=== PATIENT | male | born 1975 | race Caucasian/White ===

== ENCOUNTER 2018-03-02 05:53 | Emergency (ER) | payer MEDICARE, MEDICAID ==
[~2018-03-02] VITALS: Ht 180.3 cm; Wt 140.0 kg
[2018-03-02 06:01] VITALS: BP 128/75
[2018-03-02] MEDS ORDERED: ACETAMINOPHEN 500 MG TABLET ONE (06:14)
[2018-03-02] MEDS ORDERED: ONDANSETRON ODT 8 MG ONE (06:14)
[2018-03-02] MEDS ORDERED: BENZONATATE 100 MG CAPSULE ONE ×2 (06:17)
[2018-03-02] MEDS ORDERED: ATEN25TA PO (06:26)
[2018-03-02] MEDS ORDERED: ONDANSETRON ODT 8 MG PO ONE (06:30)
[2018-03-02] MEDS ORDERED: BENZONATATE 100 MG CAPSULE PO ONE (06:30)
[2018-03-02] MEDS ORDERED: SODIUM CHLORIDE FLUSH 10ML SYR IVF ONE (06:30)
[2018-03-02] MEDS ORDERED: ACETAMINOPHEN 500 MG TABLET PO ONE (06:30)
[2018-03-02 06:33] LABS: BASOPHILS # (AUTO) 0.04 x10^3/uL (0-0.1); BASOPHILS % (AUTO) 0 % (0-1); EOSINOPHILS # (AUTO) 0.22 x10^3/uL (0-0.4); EOSINOPHILS % (AUTO) 2 % (1-7); LYMPHOCYTES # (AUTO) 1.24 x10^3/uL (1-3.4); LYMPHOCYTES % (AUTO) 14 % (22-44); MD NO; MEAN CORPUSCULAR HEMOGLOBIN 29.3 pg (27.5-34.5); MEAN CORPUSCULAR HGB CONC 34.4 g/dL (33.2-36.2); MEAN CORPUSCULAR VOLUME 85.3 fL (81-97); MONOCYTES # (AUTO) 0.46 x10^3/uL (0.2-0.8); MONOCYTES % (AUTO) 5 % (2-9); NEUTROPHILS # (AUTO) 7.04 x10^3/uL (1.8-6.8); NEUTROPHILS % (AUTO) 78 % (42-75); PLATELET COUNT 284 x10^3/uL (130-400); RED CELL DISTRIBUTION WIDTH 13.8 % (9.4-14.8)
[2018-03-02 06:46] LABS: ALBUMIN 3.2 g/dL (3.4-5.0); ANION GAP 10 mmol/L (5-15); CALCIUM 8.7 mg/dL (8.5-10.1); CHLORIDE 106 mmol/L (98-107); CREATININE 0.73 mg/dL (0.7-1.3)
[2018-03-02 06:49] LABS: TROPONIN I < 0.015 ng/mL (0.000-0.045)
[2018-03-02 07:19] LABS: RAPID INFLUENZA A Negative (Negative); RAPID INFLUENZA B Negative (Negative)
== END 2018-03-02 08:08 | disposition home or self-care (01) ==
LOC: ED 06:38
DX: J18.9 Pneumonia, unspecified organism (principal); I10 Essential (primary) hypertension; J45.909 Unspecified asthma, uncomplicated; F31.9 Bipolar disorder, unspecified; F17.200 Nicotine dependence, unspecified, uncomplicated
CPT/HCPCS: 36415; 71046; 80048; 82040; 84484; 85025; 87400; 93005; 99285; Q0162

== ENCOUNTER 2018-03-04 04:27 | Emergency (ER) | payer MEDICAID, MEDICARE ==
[~2018-03-04] VITALS: Ht 195.6 cm; Wt 203.0 kg
[~2018-03-04 04:27] MED LIST: ATEN25TA PO
[2018-03-04] MEDS ORDERED: AZITHROMYCIN 250 MG TABLET ONE (04:45)
[2018-03-04] MEDS ORDERED: ONDANSETRON ODT 4 MG ONE (04:45)
[2018-03-04] MEDS ORDERED: ONDANSETRON ODT 4 MG PO ONE (05:00)
[2018-03-04] MEDS ORDERED: AZITHROMYCIN 250 MG TABLET PO SCH (05:00)
[2018-03-04 05:23] VITALS: BP 146/75
== END 2018-03-04 05:24 | disposition home or self-care (01) ==
LOC: ED 05:15
DX: R11.2 Nausea with vomiting, unspecified (principal); R05 Cough; J45.909 Unspecified asthma, uncomplicated; I10 Essential (primary) hypertension
CPT/HCPCS: 71045; 93005; 99284; Q0162